=== PATIENT | female | born 1945 | race Caucasian/White ===

== ENCOUNTER 2024-05-19 13:28 | Inpatient (IN) | payer MEDICARE, SELFPAY ==
[2024-05-06 08:00] VITALS: BMI 30.2
[2024-05-18] VITALS (14 sets, daily range): BP systolic 92–128; BP diastolic 45–75; PULSE 67–98; RESP 12–18; TEMP 35.9–36.9; O2SAT 93–100; BMI 30.2
--- NOTE | 2024-05-18 | DI.RAD.S_ITS ---
PROCEDURE: XR HIP W PEL IF DONE RT 2V INDICATIONS: RT ANTERIOR HIP TECHNIQUE: AP pelvis with lateral view(s) of the right hip (s). COMPARISON: None. FINDINGS: Bones: There are no osseous abnormalities. SI and hip joints: Right total hip prosthesis is anatomically aligned. Severe left hip degeneration noted Soft tissues: Mild soft tissue swelling gas seen in the surgical site that as expected. A 2 centimeter lutheran of small calcifications, in right true pelvis , is likely a calcified fibroid. IMPRESSION: Right total hip prosthesis in anatomic alignment. Severe left hip degeneration. Dictated by: Miguel Dukes M.D. on 05/19/2024 at 9:39 Approved by: Miguel Dukes M.D. on 05/19/2024 at 9:41
--- NOTE | 2024-05-18 06:00 | DI.RAD.S_ITS ---
PROCEDURE: XR HIP W PEL IF DONE RT 2V INDICATIONS: anna TECHNIQUE: AP pelvis and lateral view of the hip acquired. COMPARISON: [facility], CR, XR HIP W PEL IF DONE RT 2V, 05/18/2024, 13:09. FINDINGS: Bones: Patient is status post right hip arthroplasty, with hardware components in expected positions. The hip joint appears congruent. The visualized bony structures appear intact. There are severe arthritic changes in the left hip joint. Soft tissues: Overlying postoperative changes are noted. Cloudlike calcification in the right pelvis most consistent with calcified uterine fibroid. IMPRESSION: Expected post-operative appearance of a hip arthroplasty. Dictated by: Samina Galo M.D. on 05/18/2024 at 21:57 Approved by: Samina Galo M.D. on 05/18/2024 at 21:58
[2024-05-18] MEDS: MELOXICAM 7.5 MG TABLET 15 MG PO (09:42)
[2024-05-18] MEDS: LACTATED RINGERS 1,000 ML 42 ML IV ×2 (09:46→13:26)
--- NOTE | 2024-05-18 11:50 | PM.PREOP ---
Pre-operative Note Interval Note History & Physical reviewed/Exam performed by Physician: Yes Changes to H&P: No
--- NOTE | 2024-05-18 12:03 | SUR.OPER ---
Supine on padded [place] table with bilateral legs secured in padded positioning boots and suspended in positioning spars, operative leg in traction per surgeon. Head on one pillow. Arm on non-operative side secured on padded armboard <90 degrees abduction. Arm on operative side padded and resting across chest then secured with tape over sheet. Padded perineal post in place per surgeon.
[2024-05-18] MEDS: CEFAZOLIN 2 GM/100 ML PREMIX 100 ML IV ×2 (12:19→20:13)
[2024-05-18] MEDS: TRANEXAMIC ACID 1,000 MG VIAL 2000 MG INJ ×2 (12:22→14:17)
[2024-05-18] MEDS: ROPIVACAINE 0.5% INJ (14:16)
[2024-05-18] MEDS: [UNRECOGNIZED DRUG - OTHER] INJ (14:16)
[2024-05-18] MEDS: EPINEPHRINE INJ (14:16)
[2024-05-18] MEDS: KETOROLAC INJ (14:16)
--- NOTE | 2024-05-18 14:32 | PM.OP.1 ---
Operative Date/Time/Diagnoses Date of procedure: 05/18/24 Pre-op diagnosis: Right hip osteoarthritis Post-op diagnosis: same Procedure & Clinicians Procedure: Right total hip arthroplasty Same procedure as scheduled: Yes Surgeon: Harry Ko Home Support Worker: Barb Roberson Anesthesia Type: Spinal, Sedation and Local Operative Notes Estimated Blood Loss (mL): 300 Procedure in detail: Right Hybrid Fixation Direct Anterior Depuy Total Hip Arthroplasty with Uncemented Acetabular Component and Cemented Femoral Component: Implants: [place] Gription size 54 cup?with 2 screws (40 mm and 15 mm) C Stem femoral stem size 2 high offset? 36 mm +5 ceramic femoral head? Procedure Summary: This 78-year-old female patient had surgery canceled previously because she was diagnosed with essential thrombocytosis. She has since had an extensive workup for this and was cleared to move forward with surgery with instructions to take Eliquis for DVT prophylaxis postoperatively. Intraoperatively today I utilized screws in the acetabular component and cemented fixation on the femoral side due to a DEXA scan indicating osteopenia in the operative hip. This did align with my intraoperative assessment of her bone quality which was very poor. I was able to open up her canal for reaming using a CLO [employer] Inckauer suction tip. I initially trialed with a +1.5 head and had good stability but noted that the construct had slightly diminished leg length and offset compared to the other side so final implants were placed with a +5 head. Procedure in Detail: This patient was seen preoperatively and evaluated for hip pain which was refractory to numerous nonoperative treatment modalities. Their hip pain correlated with radiographic changes demonstrating significant degeneration in the hip joint. The risks and benefits of continued nonoperative management versus operative management were discussed at length and all of the patient?s questions were answered. Additional educational materials providing further details beyond our discussion in clinic were provided via a publicly available patient education video which included the incidence of medical complications associated with total hip arthroplasty, reasons for revision following total hip arthroplasty, and patient satisfaction rates following total hip arthroplasty. That video can be accessed at [email or web address] . With this understanding of the risks inherent to the procedure, the patient elected to move forward with operative management. Following preoperative optimization, the patient was scheduled for surgery. The patient was met in the preoperative holding area the day of the procedure and all questions were answered. The patient?s nares were swabbed with betadine in order to decolonize them from MRSA. Informed consent was signed and the right limb was marked with indelible ink.? The patient was brought back to the operating room where anesthesia was induced. The patient was transferred to the Sabine table and all bony prominences were padded. The operative site was prepped and draped in the usual sterile fashion. Prior to incision, tranexamic acid and cefazolin were administered. Operative templating images were displayed demonstrating the anticipated implant sizes and correct operative extremity. A timeout procedure was performed verifying the patient?s identity, medical comorbidities, allergies, relevant medications, anesthesia type and the surgical plan. All present were in agreement. The assistance of a physician education administrative assistant was required for positioning, room setup, soft tissue retraction and wound closure. Without this assistance, the procedure would have been significantly more challenging and time consuming.?? A direct anterior approach to the hip was utilized. This was performed with a longitudinal incision through a Heuter interval. The incision was planned 2 cm distal and 2 cm lateral to the ASIS extending towards the lateral patella, in line with the muscle body of the TFL. Following incision, the subcutaneous tissue was dissected while taking care to avoid injury to the lateral femoral cutaneous nerve. The fascia overlying the TFL was identified by dissecting off the overlying fat and identifying perforating vessels to the TFL. The TFL fascia was incised and dissected away from the medial border of the TFL. A retractor was placed over the superior femoral neck between the abductors and the hip capsule and used to reflect the TFL laterally. A Osborne self-retainer was then placed in the distal aspect of the wound between the TFL and the rectus femoris. This was tensioned to open up the direct anterior interval and the lateral circumflex vessels were identified and coagulated using electrocautery. The floor of the TFL fascia was incised, exposing the pericapsular fat overlying the hip capsule. A second cobra retractor was placed on the inferior femoral neck. A retractor was placed on the anterior wall of the acetabulum and used to tension the reflected head of rectus femoris, which was then released in order to limit soft tissue tension. A capsulotomy was made in the midline of the anterior hip capsule in line with the femoral neck ending at the vastus tubercle. The retractor was removed in order to limit the amount of time that a soft tissue retractor remained on the anterior wall and limit tension on the femoral nerve. Tag stitches were placed in the superior and inferior leaflets of the hip capsule. An Perez soft tissue retractor was introduced over the tag stitches and tensioned in the interval between the rectus femoris and the TFL in order to retract and protect those muscles. The cobra retractors were replaced intracapsularly, with one over the superior neck in the pocket created by the base of the greater trochanter and the other on the femoral head. The capsulotomy was extended laterally to the base of the greater trochanter and medially to the lesser trochanter. This required externally rotating the hip. Once the lesser trochanter had been identified, a neck cut was planned according to measurements from preoperative templating. A ruler was cut at the length measured between the superior aspect of the lesser trochanter and the collar of the prosthesis. This line was extended towards the inferior aspect of the lateral cobra retractor to plan a cut which would leave minimal residual femoral neck laterally. The neck was cut at 60 degrees of external rotation along that line. A second cut was performed to remove a large napkin ring and facilitate head extraction. The napkin ring cut and femoral head were removed.?? A broad anterior wall retractor was placed between the labrum and the anterior capsule so that the anterior capsule would prevent capturing and pinching the femoral nerve anteriorly. An additional retractor was placed on the posterior wall. External rotation and traction were applied through the Sabine table so that the cut surface of the femoral neck would not restrict access to the acetabulum. The labrum was excised sharply and the pulvinar was excised with electrocautery to limit bleeding from branches of the obturator artery. Acetabular reamers were selected based on preoperative templating and measurements of the excised femoral head. These were introduced into the acetabulum. Fluoroscopy was utilized to replicate a standing AP pelvis radiograph by centering over the pelvis, rotating until there was appropriate symmetry between the obturator foramen, and introducing caudal tilt to match the position of the pubic symphysis relative to the sacrococcygeal junction according to the patient?s anatomy. Once satisfied with the reaming depth corresponding to the preoperative template and the pinch fit between the columns, an appropriate sized acetabular cup was selected which would provide 1 mm of press-fit. This cup was introduced and manipulated until appropriate abduction and anteversion angles were obtained with careful attention to appropriate abduction and anteversion angles as evaluated by the position of the cup relative to the anterior and posterior kay of the acetabulum and the AP fluoroscopy which recreated the patient?s standing radiograph. The cup was impacted into place. Two screws were placed to provide additional fixation. Peripheral osteophytes were removed. The acetabular liner was then placed with care to ensure locking of the locking mechanism.? Attention was then turned to the femur. All retractors were removed, traction was released, a retractor was placed in the interval between the hip capsule and the gluteus minimus, and the hip was externally rotated to 90 degrees. The lateral capsule was released using electrocautery. Traction was released and a Sabine hook was placed posteriorly around the proximal femur at the level of the vastus ridge. The table height was lowered in order to restrict the tension on the anterior structures during hip hyperextension to limit the risk of femoral nerve palsy. With traction off and the hip at 90 degrees of external rotation, the hip was hyperextended and adducted while manually elevating the femur away from the acetabulum with the Sabine hook to ensure it would not be caught behind the greater trochanter. An asymmetric retractor was placed over the calcar and a broad double-pronged retractor was placed over the greater trochanter. The tag stitch capturing the lateral leaflet of the capsule was moved to the medial side, leaving the conjoined and piriformis tendons isolated in the face of the greater trochanter. The hip was externally rotated and elevated. A release of the conjoined tendon was utilized to protect the femur. The canal was opened with an opening broach and a rasp was used to remove cancellous bone. A rongeur was used to remove the residual lateral bone at the base of the greater trochanter to avoid placing the stem in varus. The femur was then broached to the appropriate sized stem yielding good rotational fit and fill of the canal as well as appropriate version of the stem trial. Neck and head trials were placed, all retractors were removed and the hip was returned to neutral abduction and extension. I then reduced the hip and manually trialed it before changing surgical gloves. Initial trialing was performed with a size 2 broach, a high offset neck and a +1.5 head. I initially manually externally rotated the hip and found no instability. I then locked the hip in 45 degrees of external rotation and dropped it to the floor with traction off which demonstrated no instability. An AP pelvis fluoroscopic image matching the preoperative standing radiograph with both lesser trochanters visible and both hips in 40 degrees of external rotation demonstrated that the operative site was just slightly short and had slightly diminished offset compared to the nonoperative side. AP and lateral hip fluoroscopic images were obtained to evaluate the broach size which demonstrated that the stem was slightly undersized. The hip was dislocated and I returned to the broaching position. Based on my evaluation during initial trialing I planned to place a size 2 stem as the cement mantle would compensate for the slightly undersized stem into place a +5 head which would increase the offset and leg length. I then returned to the broaching position and prepared for cementation. Prior to cementation I irrigated the canal, placed a cement restrictor, irrigated the canal again, placed epinephrine-soaked vaginal packing with a whistle-tip catheter, and removed the whistle-tip catheter after insertion of cement. The definitive stem was placed. Cement was allowed to dry and the trunnion was cleaned and dried. I placed a ceramic head onto the trunnion and impacted it into place on the Barclay taper.?? All retractors were removed and the hip was reduced. A dilute mixture of betadine and peroxide was used to bathe the soft tissues during final fluoroscopic assessment. Appropriate component positioning was confirmed on an AP pelvis radiograph with the operative and nonoperative legs in 40 degrees of external rotation, evaluating leg length and offset. Appropriate stem fill was evaluated on AP and lateral hip radiographs. No fractures were identified on these radiographs. There was no hip instability with maximum (125?) external rotation as well as a 45 degree drop test. The hip was copiously irrigated with pulse lavage. The capsule was closed with absorbable interrupted suture. The TFL fascia was closed with barbed suture while carefully protecting the lateral femoral cutaneous nerve from entrapment. A mixture of Ropivacaine, Epinephrine, Clonidine and Toradol was infiltrated throughout the soft tissues. The skin was closed with 2-0 and 3-0 sutures. Surgical glue was applied and a soft dressing was placed.??The sponge, instrument and needle counts were reported as being correct at the end of the case.??No obvious complications occurred. The patient was transferred from the Sabine table back to a stretcher. The patient emerged from anesthesia without difficulty and was taken to the PACU in a stable condition.? Plan for aftercare: No hip precautions Weightbearing as tolerated Eliquis 5 mg twice per day for DVT prophylaxis Anticipate discharge home later today versus tomorrow Multimodal pain regimen with no IV opioids ordered Apply ice machine to operative hip. Ensure that sufficient ice is in the chamber for the pad to remain cold Follow up at [facility] in 2 weeks Detailed postoperative instructions available at [email or web address]
[2024-05-18 15:37] LABS: Hematocrit 37.3 % (36-46); Hemoglobin 12.4 g/dL (12.0-16.0); Mean Corpuscular HGB Conc 33.2 % (30-36); Mean Corpuscular Hemoglobin 32.7 PG (26-34); Mean Corpuscular Volume 98.3 fL (80-100); Platelet Count 369 X10^3/uL (150-400); Red Blood Cell Count 3.79 X10^6/uL (4.0-5.2); Red Cell Distribution Width 16.9 % (11.6-14.8); White Blood Cell Count 10.5 X10^3/uL (4.5-11.0)
[2024-05-18 15:49] LABS: Alanine Aminotransferase 17 IU/L (<35); Albumin 3.7 g/dL (3.5-5.0); Albumin Globulin Ratio 1.7 (1.0-2.8); Alkaline Phosphatase 57 U/L (38-126); Aspartate Aminotransferase 30 IU/L (14-36); BUN Creatinine Ratio 26.4 (6-22); Bilirubin Total 0.3 mg/dL (0.2-1.3); Blood Urea Nitrogen 24 mg/dL (7-17); Calcium 8.9 mg/dL (8.4-10.2); Carbon Dioxide 25 mmol/L (22-32); Chloride 105 mmol/L (98-107); Estimated Glomerular Filt Rate > 60 mL/min (>60); Globulin 2.2 g/dL (1.7-4.1); Glucose 147 mg/dL (80-110); HEMOLYSIS < 15 (0-50); Potassium 3.6 mmol/L (3.4-5.1); Sodium 137 mmol/L (137-145); Total Protein 5.9 g/dL (6.3-8.2)
[2024-05-18 16:01] LABS: Troponin I < 0.012 ng/mL (0.01-0.034)
[2024-05-18] MEDS: ACETAMINOPHEN 325 MG TABLET 650 MG PO ×2 (17:00→23:02)
[2024-05-18] MEDS: DOCUSATE 100 MG CAPSULE PO (20:11)
[2024-05-18] MEDS: LACTATED RINGERS 1,000 ML 100 ML IV (20:11)
[2024-05-18] MEDS: CELECOXIB 200 MG CAPSULE PO (20:11)
[2024-05-18] MEDS: TRAMADOL 50 MG TABLET PO (23:04)
[2024-05-19] MEDS: ACETAMINOPHEN 325 MG TABLET 650 MG PO ×4 (03:52→20:46)
[2024-05-19] MEDS: CEFAZOLIN 2 GM/100 ML PREMIX 100 ML IV (03:52)
[2024-05-19 04:00] VITALS: BP 104/60; PULSE 91; RESP 17; TEMP 36.7; O2SAT 96
[2024-05-19] MEDS: TRAMADOL 50 MG TABLET PO ×2 (04:28→10:46)
[2024-05-19 05:06] LABS: Hematocrit 31.6 % (36-46); Hemoglobin 10.6 g/dL (12.0-16.0)
[2024-05-19 08:06] VITALS: BP 109/59; PULSE 85; RESP 15; TEMP 36.8; O2SAT 95
[2024-05-19] MEDS: polyethylene glycoL 3350 17 GM POWD.PACK PO (09:03)
[2024-05-19] MEDS: DOCUSATE 100 MG CAPSULE PO ×2 (09:03→20:45)
[2024-05-19] MEDS: CELECOXIB 200 MG CAPSULE PO ×2 (09:03→20:45)
--- NOTE | 2024-05-19 09:05 | PT.IIE ---
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) History of total right knee replacement (2010) Hx of cholecystectomy Hx of colonoscopy (07/2015) Hx of colonoscopy with polypectomy (01/29/11) Medical History (Last Updated 05/06/24 @ 09:39 by Shira Solomon, RN) Arthritis Depression Essential thrombocytosis GERD (gastroesophageal reflux disease) History of colon polyps 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 no steps to enter elevator to basement for throwing her trash Home Environment Standard Height Toilet,Walk in Shower,Elevator Home Equipment Four Wheel Walker,Raised Toilet Seat w/Armrests,Shower Seat with Backrest,Lift Recliner,Grab Bars In Shower Additional Social History Comment pt stated that she will have a home health caregiver to come in to assist her but has not set up frequency pt has a high bed with bed rails. pt steps up on a step to get up and stated that she rolls/falls backwards to be able to lift her LE up into the bed M2 PT-IP Current Condition Start: 05/19/24 09:22 Freq: NEEDED Status: Active Protocol: Document 05/19/24 09:05 AB (Rec: 05/19/24 13:02 AB [id number]) Physical Therapy Current Condition Current Condition Evaluation Date 05/19/24 Treatment Diagnosis s/p R DARRIN anterior; difficulty in walking Onset Date 05/18/24 M3 PT-IP Subjective Start: 05/19/24 09:22 Freq: NEEDED Status: Active Protocol: Document 05/19/24 09:05 AB (Rec: 05/19/24 13:02 [id number]) Subjective Physical Therapy Visit Type Type Initial Evaluation Visit Start Time 09:05 Visit Stop Time 10:05 Number of FINANCIAL SERVICES REP Visits 0 Physical Therapy Visit Comments Patient Comments agreeable to do PT Patient Goals to go home Therapy Pain Assessment Pain When Pain Assessed At Rest Pain Present Pain Present Pain Reported Location Right Hip Intensity 7 Scale Used increases with movement: 8.5/ 10 Pain Management Techniques Apply Cold,Distraction, Modification of Treatment,Re- positioning,Timing of Activity with Medications M4 PT-IP Mobility and Gait Start: 05/19/24 09:22 Freq: NEEDED Status: Active Protocol: Document 05/19/24 09:05 AB (Rec: 05/19/24 13:02 [id number]) PT-Bed Mobility Assessment Supine to Sit Supine to Sit Standby Assistance,Bedrails Sit to Supine Sit to Supine Moderate Assistance,1 Person Assistance,Bedrails PT-Transfer Assessment Sit to and From Stand Sit to and from Stand Standby Assistance,Contact Guard Assistance,1 Person Assistance,Use of Upper Extremities Equipment Transfer Assistive Device Gait Belt,Front Wheeled Walker ,4 Wheeled Walker Orthotic/Prosthetic Devices or Brace: No Transfers Transfer Destination Bed,Chair Transfer Technique ambulated Transfer Ability Level of Assist Standby Assistance,Contact Guard Assistance Comments Mobility Comments checked on pt and pt using the toilet. NAC in room. PT took over pt's care. sit to stand from the toilet using grab bar CGA and pt ambulated towards the sink using fWW CGA. presents wtih antalgic gait. pt able to maintain standing CGA while completing handwashing. pt ambulated to EOB using fWW SBA. obtained PLOB and home set up. pt stated that she has a high bed and usually steps up on step stoold sideway to get into the bed and falls/rolls her back in to the bed to be able to elevated BLE up in bed . adjusted bed according to pt's bed at home. pt stated that she can sit on EOB and scoot. infomred pt regarding safety concerns with how she does bed mobility prior to surgery. completed bed mobility sit to stand with several techniques: log roll, scooting but pt unable to elevated LE up in bed. pt also with decrease trunk strength/control with occasional posterior LOB during scooting. pt with a lift chair at home and informed pt that she can temporarily sleep on a lift chair for now. Recommending HHPT to be able to work on bed mobility with pt's own bed set up. pt requiring SBA for supine to sit using bed rail. sit <>stand from EOB SBA and ambulated in room using 4WW SBA ~ 10 ft. pt agreed to sit up on the chair. positioned pt on the chair. call light and table placed within reach. Gait Assessment Gait Gait Assistance Required: Standby Assistance,Contact Guard Assist Distance (Feet) 40 Able to Maintain Weight Bearing Status Yes During Gait Assistive Devices Assistive Device Gait Belt,Front Wheeled Walker ,4 Wheeled Walker Orthotic/Prosthetic Devices or Brace: No Gait Deviations General Gait Pattern Antalgic Factors Limiting Gait Function Factors Limiting Gait Function Decreased Activity Tolerance, Decreased Strength,Limited Range of Motion,Pain,Poor Balance,Poor Safety Awareness PT-Balance Assessment Sitting Balance and Reactions Static Sitting Balance Ability Good Dynamic Sitting Balance Ability Fair Standing Balance and Reactions Static Standing Balance Ability Fair Dynamic Standing Balance Ability Fair Device Used 4WW M5 PT-IP Objective Assessments Start: 05/19/24 09:22 Freq: NEEDED Status: Active Protocol: Document 05/19/24 09:05 AB (Rec: 05/19/24 13:02 [id number]) Orientation Orientation/Cognition Level of Alertness Alert Orientation Name,Place,Situation Language Function Ability Hard of Hearing Safety Awareness Decreased Safety Awareness Memory Description No Deficits Noted Strength Lower Extremity Strength Assessment Right Impaired Hip 3-/5 Knee 3+/5 Sensation Assessment Sensation Gross Sensation WNL Muscle Tone Muscle Tone WNL Yes M6 PT-IP Treatment Start: 05/19/24 09:22 Freq: NEEDED Status: Active Protocol: Document 05/19/24 09:05 AB (Rec: 05/19/24 13:02 [id number]) Physical Therapy Treatment Education Education Provided Precautions,Weight Bearing Status,Post-Op Packet,Safety M7 PT-IP Assessment and Plan Start: 05/19/24 09:22 Freq: NEEDED Status: Active Protocol: Document 05/19/24 09:05 AB (Rec: 05/19/24 13:02 AB [id number]) PT Summary Assessment and Plan Potential Rehabilitation Potential Good Status of Condition at Evaluation Stable Summary Impairments Pain,ROM,Strength,Balance, Coordination,Bed Mobility, Transfers,Gait,Activity Tolerance Assessment Summary pt is a 78 y/o F s/p R DARRIN anterior approach. per Dr. Ko, pt with no hip precautions and is WBAT. pt requiring mod A for sit to supine and SBA for supine to sit, sBA for ambulation using 4WW. Recommending use of lift chair to sleep at this time. pt will also need assistance at home and HHPT. Goals Bed Mobility Goal Independent Transfer Goal Independent,Four Wheeled Walker Gait Goal Independent,Four Wheel Walker Gait Distance 200 Days to Meet Goals 5 Frequency of Treatment Frequency Of Treatment Twice a Day Treatment Plan Physical Therapy Treatment Plan Bed Mobility Training,Transfer Training,Gait Training, Therapeutic Exercise,Balance Retraining,Post Op Education, Discharge Planning,Hot or Cold Pack,Neuromuscular Re-ed, Coordination Retraining,Manual Therapy Weight Bearing Status Weight Bearing Status Weight Bear as Tolerated Allowed Weight Bearing Amount (enter % RLE WBAT or #) (%) Recommendations To Nursing Amount of Assist Needed 1 Person Assist Discharge Recommendations PT Discharge Recommendations Home with Assistance,Home Health Transportation Needs at Discharge Private Vehicle,Wheelchair/ Cabulance - PT assist 1PA
[2024-05-19] MEDS: HYDROXYUREA 500 MG CAPSULE PO (09:52)
--- NOTE | 2024-05-19 11:53 | PM.PN.1 ---
Subjective Subjective Interval history: PATIENT SUMMARY: Rain Wells is currently hospitalized for post-operative care following a total hip arthroplasty performed by myself on 2024-05-18. The primary reason for the encounter is to assess post-operative recovery and discuss discharge planning. PAST SURGICAL HISTORY: - Total hip arthroplasty performed by myself yesterday. Cemented stem fixation. SUBJECTIVE: The patient reports difficulty with weight bearing, rating the discomfort up to an 8 out of 10. She is able to ambulate around the room and to the bathroom without limping. She inquired about pain management options, specifically mentioning ibuprofen and Celebrex, and confirmed taking Celebrex twice daily. The patient also discussed the use of Tramadol during her hospital stay for pain management, finding it beneficial. She expressed concerns about potential mishaps during surgery, which were reassured as none occurred aside from weak bones. The patient is actively involved in planning for discharge transportation, mentioning issues with the availability of the [employer] service. PHYSICAL EXAM: Constitutional: - The patient is alert and oriented, participating actively in the discussion about her care and discharge planning. Musculoskeletal: - Ambulating in the halls with a walker during my exam. Intact sensorimotor function in the sciatic and femoral nerve distributions. Dressing clean dry and intact. ASSESSMENT: - Post-operative status after total hip arthroplasty. - Pain management is a irving concern, with options including Celebrex and Tramadol. PLAN: - Continue Celebrex 200 mg twice daily for pain management. - Consider Tramadol as needed for additional pain control. - Arrange for post-operative follow-up appointments at two weeks and six weeks. - Assist with discharge planning, particularly with transportation arrangements. DISPOSITION: - DC home today with home transport Exam Vital Signs (past 8 hours): - 05/19/24 04:00 05/19/24 08:06 Temperature 98.0 F 98.2 F Pulse Rate 91 H 85 Respiratory Rate 17 15 Blood Pressure 104/60 109/59 L Pulse Oximetry 96 95 Oxygen Flow Rate 0 0 Oxygen Delivery Method Room Air Oxygen Flow Rate 0 Objective Labs 05/19/24 04:54 05/18/24 15:27 Labs: Laboratory Results - last 24 hr 05/18/24 05/19/24 15:27 04:54 WBC 10.5 RBC 3.79 L Hgb 12.4 10.6 L Hct 37.3 31.6 L MCV 98.3 MCH 32.7 MCHC 33.2 RDW 16.9 H Plt Count 369 Sodium 137 Potassium 3.6 Chloride 105 Carbon Dioxide 25 BUN 24 H Creatinine 0.91 Estimated GFR > 60 BUN/Creatinine Ratio 26.4 H Glucose 147 H Calcium 8.9 Total Bilirubin 0.3 AST 30 ALT 17 Alkaline Phosphatase 57 Troponin I < 0.012 Total Protein 5.9 L Albumin 3.7 Globulin 2.2 Albumin/Globulin Ratio 1.7 PFSH Medical History (Updated 05/06/24 @ 09:39 by Shira Solomon RN) Essential thrombocytosis History of colon polyps GERD (gastroesophageal reflux disease) Depression Osteoarthritis Arthritis 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) Surgical History (Updated 05/06/24 @ 09:38 by Shira Solomon RN) Hx of colonoscopy with polypectomy (01/29/11) Hx of colonoscopy (07/2015) History of ankle surgery 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 Quality VTE Deep Vein Thrombosis/Pulmonary Embolism Present on Admission: No
--- NOTE | 2024-05-19 12:16 | CM.DANOTE ---
DCP Assessment note pt is a 78yo F POD1 total right hip with Dr. Ko [facility] AFRICANA STUDIES PROFESSOR reviewed EMR. Per PT, rec home with . AFRICANA STUDIES PROFESSOR met with pt in room. Pt confirms she lives alone in Apartment in [place]. is normally indep at baseline but has hired PP CGs with [facility] care to assist at dc, caregiver will meet with pt in apartment later this afternoon after dc. has walker/wc/cane/bath bench/lift chair, many other DME available at home. pt agreeable to HH, no preference for agency. [facility] selected due to random rotating vendor calender, gave pt [facility] brochure. Pt normally uses [facility] transport. does not have her credit care or anyone that could pay for her, credit care and check are at home. AFRICANA STUDIES PROFESSOR spoke with Maxi at [facility], can accept referral. completed f2f/order. CC Asmita emailed [facility] referral information. AFRICANA STUDIES PROFESSOR spoke with [facility] transport Nicola- no transport available. Per [employer], no transport available. Per Ofe at [facility], transport available. cost estimate $289. could take payment once pt gets home if hospital agreed to pay if pt does not pay. transport scheduled for 1300 today. AFRICANA STUDIES PROFESSOR database administration manager Eva agreed to cover transport cost if pt does not pay. AFRICANA STUDIES PROFESSOR updated pt that no [facility] available, updated on [facility]. agrees to go via [facility] and pay cost once gets home. P: pt to dc home with [facility] to follow and PP CG at home, [facility] to transport at 1300, pt to pay once gets home. CM team will continue to follow as needed TEJINDER Rodriguez Discharge Planning/Care Management CM Discharge Assessment Start: 05/19/24 12:15 Freq: Status: Active Protocol: Document 05/19/24 12:15 SL (Rec: 05/19/24 12:16 [id number]) Discharge Planning Assessment Assigned Rn Community TEJINDER Monsalve Advance Directives? Yes Advance Directives on File No History Provided By Patient Prior Living Arrangements Apartment/Condo Household Members none Type of transporation used prior to Relies on Others admit Independent with ADL's Yes Is patient alert and oriented? Yes DME Already Rented / Owned Bath Bench,Wheelchair,FWW / Walker,Cane Patient/Family Preference Home with Home Health Discharge Plan Home with Home Health Transportation Arrangement [facility] transport Referrals Initiated Home Health If patient plan is home with home health Yes : Has signed face to face form been completed? SNF/HH Preference Alpha Whiteboard Updated in Patient Room with Yes name and ext. # of Rn Community Review Status In Process Please Provide Date Initial DC 05/19/24 Assessment Was Performed Next Review Type Continued Stay Review Pre-Anesthesia Assessment Start: 05/06/24 08:00 Freq: Status: Active Protocol: Document 05/06/24 08:00 CAB (Rec: 05/06/24 10:24 CAB [id number]) Pre-Anesthesia Assessment PAC Comment Phone assess 05/06/24. Outside labs from Oncology visit and EKG 11/18/23 scanned in, unsure if surgeon will ordered additional pre-op labs/EKG. Patient Information Reviewed Via Phone Assessment Assessment Completed With Patient Diagnostic Results BMP/CMP,CBC,EKG Comment Outside labs 04/17/24 in Oncology visit, outside EKG 11/18/23 Primary Care Provider Christiano Duarte Seen Specialist in Last 12 Months Yes Specialist Seen Oncologist,Orthopedist Comment Oncology pre-op visit 04/28/24 scanned and in surgery folder Primary Language Libyan Preferred Language Libyan Care Management Assistant Required No Height 165.1 cm Weight 82.554 kg Body Mass Index (BMI) 30.2 Hearing Ability Normal Visual Assist Glasses Dentition Type Teeth, Natural Present Barriers to Learning None Hx Anesthesia Reactions Yes: I woke up crying after a knee surgery Hx Family Anesthesia Reaction No Hx Malignant Hyperthermia No Hx Blood Transfusions No Anesthesia Review Requested No Technical Publications Writer No alcohol intake never Smoking Status Former smoker how long ago did patient quit smoking Quit in the 60's Substance Use Type [#R] does not use Pain Present Pain Reported Musculoskeletal Symptoms Abnormal Gait,Difficulty Walking,Joint Pain History of Falling (Recent or History of No ) Patient is completely paralyzed or No completely immobile Prosthesis or Orthotic Device Front Wheel Walker Mental Status Oriented to own ability Is patient on oxygen? No Does patient have RALPH/SOB No Hx Sleep Apnea No Currently Taking a Beta Fariab No Can You Climb a Flight of Stairs Without Yes SOB Hx Chest Pain No Hx SOB No Hx Syncope or Dizziness No Anti-Coagulant Therapy No Has a Screed Person No Cardiac Testing No Hx Pacemaker/ICD No Pacemaker Rep Required? No Cardiac Clearance Received No Diet Type At Home Regular Dysphagia No Gastrointestinal Symptoms None Urinary Catheter Present No Hx Urinary Self Catheterization No Diabetes No Patient No Lactating No Hx Drug Resistant Organism No Presence of External or Internal Medical Yes: right knee prosthesis, Devices left ankle Comment No covid symptoms x 8 weeks Marital Status , lives in a memory facility Lives With none Current Living Arrangements Apartment/Condo Support System None Does the Patient Have Assistance After Yes: [facility] care Surgery will come daily to check on patient Patient Discharge Plan Description Return Home Comment Pt advised overnight length of stay per surgeon Feels Safe in Current Environment Yes Been Physically Hurt or Threatened By a No Person in Current Environment Do you have thoughts of harming yourself None or others? Are you currently considering suicide? No Do you have a plan to hurt yourself or No Plan others? Do You Have Any Spiritual Beliefs That No May Affect Your HC Choices? Do You Have Any Cultural Practices That No May Affect Your HC Choices? Who Can We Speak to About Patient's Care Family, friends Identifying Code for Release of Patient Declines to issue Information Health Care Proxy/Next of Kin Angela Stearns (daughter) Health Care Proxy Emergency Contact Name Angela Stearns (daughter) Emergency Contact Advance Directives? Yes Advance Directives on File No Requested Patient Bring Advanced Yes Directives DOS Power of Furnace Roaster Yes Power of Furnace Roaster Name Angela Stearns (yojana) Power of Furnace Roaster PAC Instructions Do not shave/clip surgical site,Durable medical equipment ,Medications to take/avoid,No ETOH/petroleum product on skin DOS,NPO,Pre-surgical wash, Sturdy shoes/comfortable clothes,Do not bring valuables and remove jewelry
[2024-05-19 12:50] VITALS: BP 78/48; PULSE 72; O2SAT 97
[2024-05-19] MEDS: ONDANSETRON 4 MG ODT PO (12:53)
--- NOTE | 2024-05-19 13:47 | PM.DS.1 ---
History of Present Illness History of Present Illness Chief complaint: OPB Narrative: Rain Wells is a pleasant 78 year old female who is POD#1 s/p right total hip arthroplasty, anterior approach by Dr. Ko. This morning patient reports she is doing well overall, she is hopefull to d/c to home today. She states she had worked w/ PT earlier and made good progress, she says she felt stable w/ ambulation w/ the assistance of a walker and would be okay to d/c to home even though she has no support at home. She lives alone, has no stairs in her [facility] apartment however, she does have a daughter who lives in [place]. She reports she has post-op pain medication and DVT prophylaxis medication at home already. She worked with her oncologist to develop a postoperative DVT prophylaxis protocol with Eliquis, aspirin and hydroxyurea. She reports that she has Oxycodone at home for pain control but she felt the Tramadol worked better for her pain here in the hospital, she is requesting an outpatient Tramadol Rx for post-op pain control. She has been urinating well without issue. She has postoperative physical therapy set up already. She has some HH set up as well but is interested in getting meal deliveries set up as well if possible. Denies fever, chills, chest pain, SOB, nausea, vomiting. Operative Date/Time/Diagnoses Date of procedure: 05/18/24 Pre-op diagnosis: Right hip osteoarthritis Post-op diagnosis: same Procedure & Clinicians Procedure: Right total hip arthroplasty Same procedure as scheduled: Yes Surgeon: Harry Ko Manual Training Teacher: Barb Roberson Anesthesia Type: Spinal, Sedation and Local Operative Notes Estimated Blood Loss (mL): 300 Procedure in detail: Right Hybrid Fixation Direct Anterior Depuy Total Hip Arthroplasty with Uncemented Acetabular Component and Cemented Femoral Component: Implants: [place] Gription size 54 cup?with 2 screws (40 mm and 15 mm) C Stem femoral stem size 2 high offset? 36 mm +5 ceramic femoral head? Discharge Providers Provider Date of admission: 05/19/24 13:28 Discharge Date: 05/19/24 Consults: 05/18/24 06:00 Consult to Anesthesiology Routine Comment: Consulting Provider: Anesthesiologist Reason for consultation: Regional block for post operative pain control Consult to Discharge Planning Routine Comment: Lives alone, wants HHRN/PT after surgery 05/18/24 15:55 Consult to Discharge Planning Routine Comment: Consult to Physical Therapy Evaluate & Treat Comment: Physician Instructions: post op DARRIN protocol 05/19/24 11:48 Consult to Home Health Routine Comment: Reason For Exam: RN/PT/OT Discharge provider: Barb Roberson PA-C Summary Hospital Course Discharge Diagnosis: stable s/p R DARRIN Hospital Course: Uncomplicated hospital course. Patient does live alone did not have any support or assistance at home for transportation or observation during the 1st night postoperatively. Exam Vital Signs (past 8 hours): - 05/19/24 08:06 Temperature 98.2 F Pulse Rate 85 Respiratory Rate 15 Blood Pressure 109/59 L Pulse Oximetry 95 Oxygen Flow Rate 0 Oxygen Delivery Method Room Air Oxygen Flow Rate 0 Narrative Exam Narrative: Patient sitting comfortably in bedside chair during our interview today. No acute distress. AOx3. Grossly normal alignment of the RLE. 5/5 strength with DF, PF, EHL bilaterally. Gross sensation intact throughout bilateral lower extremities. Calves soft and non-tender bilaterally. Brisk capillary refill, pulses intact. Post-surgical Aquacel dressing clean, dry and intact over the right hip without drainage. Objective Labs 05/19/24 04:54 05/18/24 15:27 Labs: Laboratory Results - last 24 hr 05/18/24 05/19/24 15:27 04:54 WBC 10.5 RBC 3.79 L Hgb 12.4 10.6 L Hct 37.3 31.6 L MCV 98.3 MCH 32.7 MCHC 33.2 RDW 16.9 H Plt Count 369 Sodium 137 Potassium 3.6 Chloride 105 Carbon Dioxide 25 BUN 24 H Creatinine 0.91 Estimated GFR > 60 BUN/Creatinine Ratio 26.4 H Glucose 147 H Calcium 8.9 Total Bilirubin 0.3 AST 30 ALT 17 Alkaline Phosphatase 57 Troponin I < 0.012 Total Protein 5.9 L Albumin 3.7 Globulin 2.2 Albumin/Globulin Ratio 1.7 PFSH Medical History (Updated 05/06/24 @ 09:39 by Shira Solomon RN) Essential thrombocytosis History of colon polyps GERD (gastroesophageal reflux disease) Depression Osteoarthritis Arthritis 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 Appreciate CM assistance w/ transportation and HH arrangement. 2) Continue multimodal pain management with ice to the hip for additional pain control. Tramadol Rx sent to the patients retail pharmacy today. 3) Eliquis BID, ASA and hydroxyurea for DVT prophylaxis postoperatively per oncologist ( she has a hx of essential thrombocytosis). 4) Start outpatient physical therapy to work on range of motion and mobility. Weightbearing as tolerated, no hip precautions. 5) Keep dressing intact, clean, dry until 2 week postop appointment. No soaking the incision site in pools or tubs. No topical ointments or creams to the incision site. 6) Follow up at [facility] orthopedics in 2 weeks for a postop appointment and wound check. All patient's questions were answered, they demonstrates understanding and are in agreement with the plan. Call our office if any questions or concerns arise. Discharge Plan Discharge Plan Patient Disposition: Home Discharge orders & Medications Prescriptions: New acetaminophen 325 mg Tablet 650 mg PO Q6H Qty: 90 0RF tramadol 50 mg Tablet 50 mg PO QID PRN (Reason: Pain, Moderate (4-6)) Qty: 25 0RF docusate sodium 100 mg Capsule 100 mg PO BID Qty: 30 0RF ondansetron 4 mg Tablet,Disintegrating 4 mg PO Q4HR PRN (Reason: Nausea) Qty: 10 0RF Eliquis 5 mg tablet 5 mg PO BID Qty: 30 0RF Continued celecoxib [Celebrex] 200 mg Capsule 200 mg PO DAILY hydroxyurea 500 mg Capsule 500 mg PO QAM aspirin 81 mg Capsule 81 mg PO DAILY Discontinued acetaminophen 650 mg Tablet Extended Release 1,300 mg PO BID PRN (Reason: Pain) Diet/Activity/Treatments Diet: Diet as Tolerated Activity: Weightbear as tolerated, no hip precautions. Cold/Heat Therapy: Ice to the hip for additional pain control. Skin/Wound/Dressing Care Report to your healthcare provider any signs of infection, such as:: chills, fever, night sweats, unusual drainage and unusual redness Dressing: Keep dressing intact, clean and dry until 2 week post-op appointment. No soaking the incision site in pools or tubs. No topical ointments or creams to the incision site. Visit Report/Discharge Packet Instructions: DI for Hip Replacement, DI for Prescription Opioid Use Stand Alone Forms: Patient Portal/API Quality VTE Deep Vein Thrombosis/Pulmonary Embolism Present on Admission: No
--- NOTE | 2024-05-19 13:58 | PC.NURSE ---
@1245 I was heading into Pt room to go over discharge w/Pt. I was told by PCT that Pt was nauseated. I gave the Pt SL Zofran and she said the Nausea was mild. As I was going ocer discharge w/Pt she stated she felt dizzy. I checked BP on right arm was 78/48, on left arm BP was 74/47. I talked to Dr. Ko and he ordered to cancel D/C but to encourage oral fluid and monitor Pt. I will check BP again @ 1400.
[2024-05-19 14:00] VITALS: BP 97/62
[2024-05-19] MEDS: ASPIRIN EC 81 MG TABLET PO (16:45)
--- NOTE | 2024-05-19 16:45 | PT.IPTN ---
Current Diagnoses Unilateral primary osteoarthritis, right hip (05/19/24) Surgery Performed Operation Date: 05/18/24 10:45 Actual Procedures p Total Hip Arthroplasty/Anterior Approach(Right) - Harry Ko MD Physical Therapy Treatment Note M2 PT-IP Current Condition Start: 05/19/24 09:22 Freq: NEEDED Status: Active Protocol: Document 05/19/24 09:05 AB (Rec: 05/19/24 13:02 AB [id number]) Physical Therapy Current Condition Current Condition Evaluation Date 05/19/24 Treatment Diagnosis s/p R DARRIN anterior; difficulty in walking Onset Date 05/18/24 M3 PT-IP Subjective Start: 05/19/24 09:22 Freq: NEEDED Status: Active Protocol: Document 05/19/24 16:45 AB (Rec: 05/19/24 17:15 AB [id number]) Subjective Physical Therapy Visit Type Type Treatment Note Visit Start Time 16:45 Visit Stop Time 17:05 Number of CLERICAL GRADER Visits 0 Physical Therapy Visit Comments Patient Comments agreeable to do PT Therapy Pain Assessment Pain When Pain Assessed At Rest Pain Present Pain Present Pain Reported Location Right Hip Intensity 4 Scale Used Numeric (0 - 10) Pain Management Techniques Apply Cold,Distraction, Modification of Treatment,Re- positioning,Timing of Activity with Medications M4 PT-IP Mobility and Gait Start: 05/19/24 09:22 Freq: NEEDED Status: Active Protocol: Document 05/19/24 16:45 AB (Rec: 05/19/24 17:15 AB [id number]) PT-Transfer Assessment Sit to and From Stand Sit to and from Stand Standby Assistance,1 Person Assistance,Use of Upper Extremities Equipment Transfer Assistive Device Gait Belt,4 Wheeled Walker Orthotic/Prosthetic Devices or Brace: No Comments Mobility Comments pt sitting on the chair. per nurse, pt has low BP and d/c was held off. BP sittin/ 45. sit to stand from chair SBA and ambulated in room ~ 40 ft. pt sat on EOB. BP: 114/ 64 pt wanted to walk in the hallway. sit to stand from the EOB SBA and ambulated in the hallway ~ 100 ft SBA. pt sat back on the chair. BP: 117/46 . no c/o dizziness. positioned pt on the chair. set up for dinner. call light within reach. Gait Assessment Gait Gait Assistance Required: Standby Assistance Distance (Feet) 100 Able to Maintain Weight Bearing Status Yes During Gait Assistive Devices Assistive Device Gait Belt,4 Wheeled Walker Orthotic/Prosthetic Devices or Brace: No Factors Limiting Gait Function Factors Limiting Gait Function Decreased Activity Tolerance, Decreased Strength,Limited Range of Motion,Pain,Poor Balance,Poor Safety Awareness M5 PT-IP Objective Assessments Start: 05/19/24 09:22 Freq: NEEDED Status: Active Protocol: Document 05/19/24 09:05 AB (Rec: 05/19/24 13:02 AB [id number]) Orientation Orientation/Cognition Level of Alertness Alert Orientation Name,Place,Situation Language Function Ability Hard of Hearing Safety Awareness Decreased Safety Awareness Memory Description No Deficits Noted Strength Lower Extremity Strength Assessment Right Impaired Hip 3-/5 Knee 3+/5 Sensation Assessment Sensation Gross Sensation WNL Muscle Tone Muscle Tone WNL Yes M6 PT-IP Treatment Start: 05/19/24 09:22 Freq: NEEDED Status: Active Protocol: Document 05/19/24 16:45 AB (Rec: 05/19/24 17:15 AB [id number]) Physical Therapy Treatment Education Education Provided Safety M7 PT-IP Assessment and Plan Start: 05/19/24 09:22 Freq: NEEDED Status: Active Protocol: Document 05/19/24 16:45 AB (Rec: 05/19/24 17:15 AB [id number]) PT Summary Assessment and Plan Potential Rehabilitation Potential Good Summary Impairments Pain,ROM,Strength,Balance,Bed Mobility,Transfers,Gait, Activity Tolerance Progress Towards Goals Progressing Toward Goals Assessment Summary pt progressing with mobility requiring SBA with ambulation using a 4WW. pt with low BP but stable. pt plans to go home and will have HHPT. Goals Bed Mobility Goal Independent Transfer Goal Independent,Four Wheeled Walker Gait Goal Independent,Four Wheel Walker Gait Distance 200 Days to Meet Goals 5 Frequency of Treatment Frequency Of Treatment Twice a Day Treatment Plan Physical Therapy Treatment Plan Bed Mobility Training,Transfer Training,Gait Training, Therapeutic Exercise,Balance Retraining,Post Op Education, Discharge Planning,Hot or Cold Pack,Neuromuscular Re-ed, Coordination Retraining,Manual Therapy Weight Bearing Status Weight Bearing Status Weight Bear as Tolerated Allowed Weight Bearing Amount (enter % RLE WBAT or #) (%) Recommendations To Nursing Amount of Assist Needed 1 Person Assist Discharge Recommendations PT Discharge Recommendations Home with Assistance,Home Health Transportation Needs at Discharge Private Vehicle,Wheelchair/ Cabulance - PT assist 1PA
[2024-05-19 20:44] VITALS: BP 92/56; PULSE 85; RESP 16; TEMP 35.9; O2SAT 98
[2024-05-19] MEDS: APIXABAN 5 MG TABLET PO (20:46)
[2024-05-19 23:07] VITALS: BP 120/86; PULSE 86; RESP 16
--- NOTE | 2024-05-20 07:35 | P.DS_ITS ---
History of Present Illness History of Present Illness Date Patient Seen: 05/20/24 Time Patient Seen: 07:35 Chief complaint: OPB Narrative: This patient was seen preoperatively and evaluated for hip pain which was refractory to numerous nonoperative treatment modalities. Their hip pain correlated with radiographic changes demonstrating significant degeneration in the hip joint. The risks and benefits of continued nonoperative management versus operative management were discussed at length and all of the patient?s questions were answered. Additional educational materials providing further details beyond our discussion in clinic were provided via a publicly available patient education video which included the incidence of medical complications associated with total hip arthroplasty, reasons for revision following total hip arthroplasty, and patient satisfaction rates following total hip arthroplasty. That video can be accessed at [email or web address] . With this understanding of the risks inherent to the procedure, the patient elected to move forward with operative management. Following preoperative optimization, the patient was scheduled for surgery. Discharge Providers Provider Date of admission: 05/19/24 13:28 Discharge Date: 05/20/24 Consults: 05/18/24 06:00 Consult to Anesthesiology Routine Comment: Consulting Provider: Anesthesiologist Reason for consultation: Regional block for post operative pain control Consult to Discharge Planning Routine Comment: Lives alone, wants HHRN/PT after surgery 05/18/24 15:55 Consult to Discharge Planning Routine Comment: Consult to Physical Therapy Evaluate & Treat Comment: Physician Instructions: post op DARRIN protocol 05/19/24 11:48 Consult to Home Health Routine Comment: Reason For Exam: RN/PT/OT Discharge provider: Bonifacio Sandoval PA-C Summary Hospital Course Discharge Diagnosis: Right hip osteoarthritis Hospital Course: Procedure: Right total hip arthroplasty Same procedure as scheduled: Yes Surgeon: Harry Ko Taper Operator: Barb Roberson Anesthesia Type: Spinal, Sedation and Local Operative Notes Estimated Blood Loss (mL): 300 Procedure in detail: Right Hybrid Fixation Direct Anterior Depuy Total Hip Arthroplasty with Uncemented Acetabular Component and Cemented Femoral Component: Implants: * [place] Gription size 54 cup?with 2 screws (40 mm and 15 mm) * C Stem femoral stem size 2 high offset? * 36 mm +5 ceramic femoral head? * Patient developed an episode of hypotension which required an additional night's stay for observation. Exam Vital Signs (past 8 hours): Oxygen Delivery Method Room Air Oxygen Flow Rate 0 Narrative Exam Narrative: Patient is found lying in bed in her street clothes.Patient's pain is controlled with oral medication. ?Pain is localized to surgical site. ?Patient declines any new numbness or tingling at the surgical extremity. ?Patient denies any shortness of breath, dizziness, light-headedness, nausea, vomiting, fever or chills. 5/5 strength in hip flexors, quadriceps, hamstrings, DF, PF, EHL bilaterally. Sensation to light touch intact throughout BLE. Calves soft, compressible, nontender. Dressing placed intraoperatively CDI. 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 Appreciate CM assistance w/ transportation and HH arrangement. 2) Continue multimodal pain management with ice to the hip for additional pain control. Tramadol Rx sent to the patients retail pharmacy today. 3) Eliquis BID, ASA and hydroxyurea for DVT prophylaxis postoperatively per oncologist ( she has a hx of essential thrombocytosis). 4) Start outpatient physical therapy to work on range of motion and mobility. Weightbearing as tolerated, no hip precautions. 5) Keep dressing intact, clean, dry until 2 week postop appointment. No soaking the incision site in pools or tubs. No topical ointments or creams to the incision site. 6) Follow up at [facility] in 2 weeks for a postop appointment and wound check. All patient's questions were answered, they demonstrates understanding and are in agreement with the plan. Call our office if any questions or concerns arise. patient developd an episode of hypotension which required an additional night's stay. She is now hemodynamically stable and medically ready for discharge. Discharge Plan Discharge Plan Patient Disposition: Home Discharge orders & Medications Prescriptions: New acetaminophen 325 mg Tablet 650 mg PO Q6H Qty: 90 0RF tramadol 50 mg Tablet 50 mg PO QID PRN (Reason: Pain, Moderate (4-6)) Qty: 25 0RF docusate sodium 100 mg Capsule 100 mg PO BID Qty: 30 0RF ondansetron 4 mg Tablet,Disintegrating 4 mg PO Q4HR PRN (Reason: Nausea) Qty: 10 0RF Eliquis 5 mg tablet 5 mg PO BID Qty: 30 0RF Continued celecoxib [Celebrex] 200 mg Capsule 200 mg PO DAILY hydroxyurea 500 mg Capsule 500 mg PO QAM aspirin 81 mg Capsule 81 mg PO DAILY Discontinued acetaminophen 650 mg Tablet Extended Release 1,300 mg PO BID PRN (Reason: Pain) Diet/Activity/Treatments Diet: Diet as Tolerated Activity: Weightbear as tolerated, no hip precautions. Cold/Heat Therapy: Ice to the hip for additional pain control. Skin/Wound/Dressing Care Report to your healthcare provider any signs of infection, such as:: chills, fever, night sweats, unusual drainage and unusual redness Dressing: Keep dressing intact, clean and dry until 2 week post-op appointment. No soaking the incision site in pools or tubs. No topical ointments or creams to the incision site. Visit Report/Discharge Packet Instructions: DI for Hip Replacement, DI for Prescription Opioid Use Stand Alone Forms: Patient Portal/API Quality VTE Deep Vein Thrombosis/Pulmonary Embolism Present on Admission: No
[2024-05-20] MEDS: CELECOXIB 200 MG CAPSULE PO (08:29)
[2024-05-20] MEDS: APIXABAN 5 MG TABLET PO (08:29)
[2024-05-20] MEDS: ASPIRIN EC 81 MG TABLET PO (08:29)
[2024-05-20] MEDS: DOCUSATE 100 MG CAPSULE PO (08:29)
[2024-05-20] MEDS: HYDROXYUREA 500 MG CAPSULE PO (08:29)
[2024-05-20] MEDS: ACETAMINOPHEN 325 MG TABLET 650 MG PO (09:05)
[2024-05-20 11:10] VITALS: BP 105/56
--- NOTE | 2024-05-20 14:39 | CM.DPNOTE ---
DCP Note SLIP INJECTOR AND APPLICATOR reviewed EMR Per ortho PA/RN/chart review, blood pressures have improved. cleared to dc today. Per Ofe at [facility], can pharmacy picking technician pt between 2-3pm pending traffic. Per Nicola at [facility], no transport available today. SLIP INJECTOR AND APPLICATOR emailed Maxi at [facility] with final dc summary information. SLIP INJECTOR AND APPLICATOR met with pt in room. confirmed agreement with DCP. preference to dc home with [facility] and [facility] transport. report understanding will be responsible for both days of transportation costs. will pay once home with credit card. deny other questions/needs. P: dc home with PP CG at home, [facility] to follow, and [facility] transport. no further CM needs at this time. will continue to follow as needed TEJINDER Rodriguez
== END 2024-05-20 15:02 | disposition home health service (06) | DRG 470 ==
LOC: OR 13:46 → AC 13:46
PROVIDERS: Hospitalist; Admitting Provider Orthopaedic Surgery Adult Reconstructive Orthopaedic Surgery; Referring Provider Orthopaedic Surgery Adult Reconstructive Orthopaedic Surgery; Visit Provider Orthopaedic Surgery Adult Reconstructive Orthopaedic Surgery
PROC: 0SR903A Replacement of Right Hip Joint with Ceramic Synthetic Substitute, Uncemented, Open Approach (ICD-10-PCS; CPT 27130; principal; 2024-05-18 10:45)
DX: M16.11 Unilateral primary osteoarthritis, right hip (principal); M85.88 Other specified disorders of bone density and structure, other site; D47.3 Essential (hemorrhagic) thrombocythemia; I95.9 Hypotension, unspecified; Z87.891 Personal history of nicotine dependence
CPT/HCPCS: 36415; 73502; 76000; 80053; 82962; 84484; 85014; 85018; 85027; 97116; 97161; 97530; C1776; C1713; J0171; J0690; J1885; J2704